=== PATIENT | male | born 1995 | race African-American/Black ===

== ENCOUNTER → 2016-11-19 12:46 | Emergency (ER) | payer OTHER ==
[~2016-11-19 12:46] MED LIST: ALBUTEROL17 GM INH; AMOXICILLIN PO; AUGMENTIN PO; CLARITIN10 MG PO; FLEXERIL10 M1 PO; FLEXERIL10 MG PO; HYDROCORTISONE CREAM TOP; LODINE200 M1 PO; NO MEDICATIONS; PARAFON FORTE500 MG PO; VISTARIL PO; VOLTAREN50 MG PO; VOLTAREN75 MG PO; ZOFRAN ODT4 MG PO
== END | disposition home or self-care (01) ==
LOC: CFTX 12:46
DX: L29.9 Pruritus, unspecified (principal); J45.909 Unspecified asthma, uncomplicated; F90.9 Attention-deficit hyperactivity disorder, unspecified type; F31.9 Bipolar disorder, unspecified; F17.200 Nicotine dependence, unspecified, uncomplicated
CPT/HCPCS: 99282

== ENCOUNTER 2016-11-21 23:25 | Emergency (ER) | payer OTHER ==
--- NOTE | ~2016-11-21 | CR141 ---
[facility] A Service of [facility] RADIOLOGY TEXT RESULTS PATIENT: ANA REY LOCATION: CFTX : [birth year] UNIT #: [id number] AGE: [address]: Sharon Rivera APRN SEX: M ORDER DR: [id number] [facility] [address]. [place], [place] [address] [id number] E MR#: [id number] Acc #: [id number] NAME: ANA REY : 1995 SEX: M STUDY DATE/TIME: 11/22/2016 0:09 UNIT: [facility] ROOM: STUDY DESCRIPTION: CR Hand Min 3 Views Lt Attending Physician: Sharon Rivera A.P.R.N. Ordering Physician: Sharon Rivera A.P.R.N. Primary Care Physician: Primary Care Physician No MEDICAL IMAGING REPORT This report is preliminary unless electronic signature is present EXAM Left hand 3 views HISTORY Bilateral hand pain x1 day. Pain and swelling. FINDINGS AP, lateral, and oblique projections of the hand show good mineralization with normal carpal, metacarpal, and phalangeal anatomy without indication of fracture, dislocation, or soft tissue radiopaque foreign body. IMPRESSION Normal left hand. Dictated by... Reece Morejon M.D. THIS IS AN ELECTRONICALLY VERIFIED REPORT Reece Morejon M.D. at 11/22/2016 9:59 PM Vero TD: 11/22/2016 09:19 JOB #: [id number] MEDICAL IMAGING REPORT Page 1 of 1 COPY
--- NOTE | ~2016-11-21 | CR142 ---
[facility] A Service of [facility] RADIOLOGY TEXT RESULTS PATIENT: ANA REY LOCATION: CFTX : [birth year] UNIT #: [id number] AGE: [address]: Sharon Rivera APRN SEX: M ORDER DR: [id number] [facility] [address] [place], [place] [address] [id number] E MR#: [id number] Acc #: [id number] NAME: ANA REY : 1995 SEX: M STUDY DATE/TIME: 11/22/2016 0:12 UNIT: [facility] ROOM: STUDY DESCRIPTION: CR Hand Min 3 Views Rt Attending Physician: Sharon Rivera A.P.R.N. Ordering Physician: Sharon Rivera A.P.R.N. Primary Care Physician: Primary Care Physician No MEDICAL IMAGING REPORT This report is preliminary unless electronic signature is present EXAM Right hand 3 views HISTORY right hand pain x1 day. FINDINGS AP, lateral, and oblique projections of the hand show good mineralization with normal carpal, metacarpal, and phalangeal anatomy without indication of fracture, dislocation, or soft tissue radiopaque foreign body. IMPRESSION Normal right hand. Dictated by... Reece Morejon M.D. THIS IS AN ELECTRONICALLY VERIFIED REPORT Reece Morejon M.D. at 11/22/2016 9:59 PM Vero TD: 11/22/2016 09:17 JOB #: [id number] MEDICAL IMAGING REPORT Page 1 of 1 COPY
== END 2016-11-22 00:40 | disposition home or self-care (01) ==
LOC: CFTX 23:25
DX: S66.912A Strain of unspecified muscle, fascia and tendon at wrist and hand level, left hand, initial encounter (principal); S66.911A Strain of unspecified muscle, fascia and tendon at wrist and hand level, right hand, initial encounter; J02.9 Acute pharyngitis, unspecified; J45.909 Unspecified asthma, uncomplicated; X58.XXXA Exposure to other specified factors, initial encounter; Y92.9 Unspecified place or not applicable
CPT/HCPCS: 29125; 73130; 87651; 99284